=== PATIENT | female | born 1945 | race Caucasian/White ===

== ENCOUNTER 2018-05-01 08:22 | Day surgery (SDC) | payer MEDICARE, OTHER ==
[2018-05-01] MEDS ORDERED: LIDOCAINE 1%, 50ML IV ONE (08:55)
== END 2018-05-01 17:00 | disposition home or self-care (01) ==
LOC: RAD 08:22
PROVIDERS: ATTEND Internal Medicine Hematology & Oncology
DX: C96.9 Malignant neoplasm of lymphoid, hematopoietic and related tissue, unspecified (principal); C79.81 Secondary malignant neoplasm of breast
CPT/HCPCS: 38505; 76942; 88172; 88173; J3490

== ENCOUNTER → 2018-05-05 | Outpatient (CLI) | payer MEDICARE, OTHER ==
[~2018-05-05] MED LIST: LIDOCAINE-MPF 2%, 2ML ONE
== END | disposition home or self-care (01) ==
LOC: RAD 13:18
PROVIDERS: ATTEND Internal Medicine Hematology & Oncology
DX: J93.9 Pneumothorax, unspecified (principal)
CPT/HCPCS: 32555; 71045; J3490